=== PATIENT | female | born 1940 ===

== ENCOUNTER → 2017-05-04 | Outpatient (CLI) | payer MEDICARE, OTHER ==
--- NOTE | 2017-05-04 15:49 | WOMENS IMAGING REPORT ---
EXAM DESCRIPTION: U/S BREAST UNILAT LIMITED COMPLETED DATE/TIME: 05/04/2017 11:18 am REASON FOR STUDY: MASTODYNIA; N64.4 N64.4 MASTODYNIA COMPARISON: None. TECHNIQUE: Real-time and static grayscale imaging performed of the right breast targeted to the area of clinical concern. Selected color Doppler images recorded. LIMITATIONS: None. FINDINGS: Patient refuses mammograms. She has pain along her rightward sternum and right medial lino ast. Ultrasound of the area of pain was performed. Just deep to the skin surface, a 6 x 5 mm sebaceous cyst is present. No soft tissue masses in the presternal fat. No focal findings in the medial right breast. No media l right breast parenchymal cysts, masses, or acoustic absorption IMPRESSION: No suspicious findings detected by ultrasound. BIRAD: 2 Benign findings. RECOMMENDATION: RECOMMENDED FOLLOW-UP: Follow-up as clinically indicated. COMMENT: The [employer] ([employer]) has developed recommendations for screening MRI of the breasts in certain patient populations, to be used in conjunction with mammography. Breast MRI s urveillance may be appropriate for women with more than 20% lifetime risk of developing breast cancer as determined by genetic testing, significant family history of the disease, or history of mantle r adiation for Hodgkins Disease. [employer] Practice Guidelines 2008. TECHNICAL DOCUMENTATION: JOB ID: [id number] [employer]- All Rights Reserved
== END ==
LOC: WI 10:46
PROVIDERS: ATTEND Physician Assistant
DX: N64.4 Mastodynia (principal)
CPT/HCPCS: 76642